=== PATIENT | male | born 2000 | race Two or more races ===

== ENCOUNTER 2021-12-24 11:45 | Emergency (ER) | payer BC, OTHER ==
[~2021-12-24] VITALS: Ht 165.1 cm; Wt 63.5 kg
--- NOTE | 2021-12-24 11:45 | NUR ---
PT [facility] [address] C/O METH USED. PT IS AAOX4, NOT IN RESPIRATORY DISTRESS, HOOKED TO V/S MONITOR, KEPT RESTED AND COMFORTABLE. WILL CONTINUE TO MONITOR.
--- NOTE | 2021-12-24 12:05 | NUR ---
[facility] AT BEDSIDE TALKING TO PATIENT.
--- NOTE | 2021-12-24 12:43 | NUR ---
URINE SPECIMEN COLLECTED AND SENT TO LAB.
--- NOTE | 2021-12-24 12:45 | NUR ---
IV LINE ESTABLISHED BLOOD DRAWN AND SENT TO LAB.
[2021-12-24] MEDS: IV NS 0.9% 1,000 ML BAG IV ONE (12:47)
[2021-12-24 13:03] LABS: BASOPHILS % (AUTO) 0.3 % (0.0-2.0); EOSINOPHILS % (AUTO) 1.6 % (0.0-6.0); HEMATOCRIT 45 % (39-51); HEMOGLOBIN 14.7 g/dL (13.5-17.5); LYMPHOCYTES # (AUTO) 1.9 K/uL (0.8-4.8); MEAN CORPUSCULAR HGB CONC 33 g/dl (31.0-36.0); MEAN CORPUSCULAR VOLUME 92 fL (80-96); MONOCYTES # (AUTO) 0.6 K/uL (0.1-1.30); MONOCYTES % (AUTO) 9.2 % (2.0-12.0); NEUTROPHILS # (AUTO) 3.5 K/uL (1.8-8.9); NEUTROPHILS % (AUTO) 57.9 % (43.0-81.0); PLATELET COUNT (AUTO) 262 K/uL (150-450); RED BLOOD CELL COUNT(AUTO) 4.87 MIL/uL (4.5-6.0)
[2021-12-24 13:31] LABS: CALCIUM, SERUM 8.5 mg/dL (8.5-10.1); CARBON DIOXIDE 29 mmol/L (21-32); CHLORIDE 103 mmol/L (98-107); GLUCOSE 99 mg/dL (74-106); SODIUM SERUM 139 mmol/L (136-145); UREA NITROGEN, BLOOD 8 mg/dL (7-18)
[2021-12-24 13:39] LABS: ALANINE AMINOTRANSFERASE 28 U/L (12-78); ALCOHOL, BLOOD < 3 mg/dL (0-0); ALKALINE PHOSPHATASE 90 U/L (46-116); ASPARTATE AMINOTRANSFERASE 13 U/L (15-37); BILIRUBIN,DIRECT 0.2 mg/dL (0.0-0.2); BILIRUBIN,TOTAL 1.3 mg/dL (0.2-1.0); TOTAL PROTEIN, SERUM 7.5 g/dL (6.4-8.2)
[2021-12-24 13:40] LABS: ACETAMINOPHEN 0 ug/ml (10-30)
[2021-12-24 13:46] LABS: BILIRUBIN,URINE NEGATIVE (NEGATIVE); COLOR,URINE YELLOW (YELLOW); LEUKOCYTE ESTERASE ,URINE NEGATIVE (NEGATIVE); NITRITE, URINE NEGATIVE (NEGATIVE); PROTEIN,URINE NEGATIVE (NEGATIVE); UGLUCOSE NEGATIVE (NEGATIVE); UROBILINOGEN,URINE 0.2 EU/dL (0.2)
[2021-12-24] MEDS ORDERED: LORAZEPAM 1 MG TABLET ONE (14:06)
[2021-12-24] MEDS: LORAZEPAM 1 MG TABLET PO ONE (14:07)
--- NOTE | 2021-12-24 14:35 | NUR ---
IV removed. Catheter intact and site benign. Pressure and 4x4 applied to site. No bleeding noted. Patient discharged to home in stable condition. Written and verbal after care instructions given. Patient verbalizes understanding of instruction.
[2021-12-24 14:43] VITALS: BP 122/70
== END 2021-12-24 14:44 | disposition home or self-care (01) ==
LOC: ER 12:10
DX: T43.621A Poisoning by amphetamines, accidental (unintentional), initial encounter (principal); F17.200 Nicotine dependence, unspecified, uncomplicated; Z59.00 Homelessness unspecified; Y92.89 Other specified places as the place of occurrence of the external cause
CPT/HCPCS: 36415; 80048; 80076; 80143; 80307; 80320; 81003; 84484; 85025; 93005; 96360; 99284; J7030; G0480

== ENCOUNTER 2025-06-09 20:11 | Emergency (ER) | payer BC, MEDICAID ==
[~2025-06-09] VITALS: Ht 167.6 cm; Wt 67.6 kg
[2025-06-09 21:24] VITALS: BP 106/67; TEMP 98.6; O2SAT 97
[2025-06-09] MEDS ORDERED: IBUP-1490 PO (21:44)
[2025-06-09] MEDS ORDERED: LIDOCAINE HCL/PF 1% 30 ML VIAL TP ONE (22:00)
[2025-06-09] MEDS ORDERED: BACI/NEOM/POLY B OINT PKT 1 UDPKT PACKET TP ONE (22:00)
== END 2025-06-09 21:47 | disposition home or self-care (01) ==
LOC: ER 20:20
DX: S01.81XA Laceration without foreign body of other part of head, initial encounter (principal); F17.200 Nicotine dependence, unspecified, uncomplicated; Z59.00 Homelessness unspecified; W26.8XXA Contact with other sharp object(s), not elsewhere classified, initial encounter; Y93.71 Activity, boxing; Y92.89 Other specified places as the place of occurrence of the external cause; Y99.8 Other external cause status
CPT/HCPCS: 12011; 99282; J3490